=== PATIENT | male | born 1995 | race Caucasian/White ===

== ENCOUNTER 2018-08-15 15:13 | Emergency (ER) | payer OTHER ==
[2018-08-15] MEDS ORDERED: LIDOCAINE 1% INJ-PF (10 MG/ML) 30 ML SDV INJ ONE (16:22)
[2018-08-15] MEDS ORDERED: CEFTRIAXONE INJ 250 MG VIAL IM ONE (16:22)
[2018-08-15] MEDS ORDERED: AZITHROMYCIN 250 MG TABLET PO ONE (16:22)
--- NOTE | 2018-08-15 16:22 | ER Document Report ---
HPI - HPI Time Seen by Provider: 08/15/18 16:15 Pain Level: 0 Context: Patient is a 22-year-old male who presents emergency department for an STD check. His was diagnosed with chlamydia at her appointment and she was treated. Denies any fever, penile discharge, abdominal pain, or any symptoms at this time. He is up-to-date on his immunizations. He denies any past medical history. Associated Symptoms: None - ROS Systems Reviewed and Negative: Yes All other systems reviewed and negative Past Medical History - General Information source: Patient - Social History Smoking Status: Unknown if Ever Smoked Family History: Reviewed & Not Pertinent Patient has suicidal ideation: No Patient has homicidal ideation: No Renal/ Medical History: Denies: Hx Peritoneal Dialysis Vertical Provider Document - HEENT HEENT: Atraumatic, Normocephalic - NECK Neck: Normal Inspection - RESPIRATORY Respiratory: Breath Sounds Normal - CARDIOVASCULAR Cardiovascular: Regular Rate, Regular Rhythm - GI/ABDOMEN Gastrointestinal: Abdomen Soft - NEURO Level of Consciousness: Awake, Alert, Appropriate - DERM Integumentary: Warm, Dry Course - Vital Signs Vital signs: Temp Pulse Resp BP Pulse Ox 98.7 F 92 14 131/82 H 99 08/15/18 15:22 08/15/18 15:22 08/15/18 15:22 08/15/18 15:22 08/15/18 15:22 Discharge - Discharge Clinical Impression: STD exposure Condition: Stable Disposition: HOME, SELF-CARE Additional Instructions: You were seen today in the emergency department for an STD exposure. You have been treated for both gonorrhea and chlamydia. Please follow-up with your primary care provider in regards to this visit. If you develop discharge from your penis, a fever, or have any symptoms that are worrisome to you, please return to the emergency department.
[2018-08-15 16:37] VITALS: BP 129/82
[2018-08-15 18:13] LABS: CHLAM PCR NOT DETECTED (NOT DETECT); GON PCR NOT DETECTED (NOT DETECT)
== END 2018-08-15 16:36 | disposition home or self-care (01) ==
LOC: ER 15:13
DX: Z20.2 Contact with and (suspected) exposure to infections with a predominantly sexual mode of transmission (principal)
CPT/HCPCS: 99283; 96372; 87491; 87591; J3490; J0696